=== PATIENT | female | born 1945 | race Caucasian/White ===

== ENCOUNTER → 2023-08-31 10:46 | Outpatient (REF) | payer MEDICARE, OTHER, SELFPAY ==
[2023-08-31 12:05] LABS: % Basophils 0.9 % (0-2); % Eosinophils 1.3 % (0-6); % Immature Granulocytes 0.3 % (0-0.5); % Lymphocytes 29.7 % (20.5-51.1); % Monocytes 7.3 % (1.7-9.3); % Neutrophils 60.5 % (42.2-75.2); Absolute Basophils 0.1 10^3/uL (0-0.2); Absolute Eosinophils 0.1 10^3/uL (0-0.7); Absolute Monocytes 0.5 10^3/uL (0.1-0.6); Absolute Neutrophils 4.1 10^3/uL (1.4-6.5); Hematocrit 43.2 % (37.0-47.0); Hemoglobin 14.8 g/dL (12.0-16.0); Mean Corp Hgb Conc. 34.3 g/dL (33.0-37.0); Mean Corpuscular Hgb 30.5 pg (27.0-31.0); Mean Corpuscular Volume 89.1 fL (81.0-99.0); Mean Platelet Volume 10.6 fL (7.4-10.4); Nucleated Red Blood Cells % 0 %; Platelet Count 271 10^3/uL (130-400); Red Blood Cell Count 4.85 10^6/uL (4.20-5.40); Red Cell Dist. Width 13.2 % (11.5-14.5); White Blood Cell Count 6.7 10^3/uL (4.8-10.8)
[2023-08-31 12:23] LABS: ALT (SGPT) 57 U/L (0-35); AST (SGOT) 48 U/L (14-36); Albumin 4.5 g/dl (3.5-5.0); Alkaline Phosphatase 64 U/L (38-126); Blood Urea Nitrogen 14 mg/dl (7-17); Calcium 9.9 mg/dl (8.4-10.2); Carbon Dioxide 25 mmol/L (22-30); Chloride 108 mmol/L (98-107); Glucose 99 mg/dl (70-99); HDL Cholesterol 72 mg/dl; LDL Cholesterol, Calculated 108 mg/dl; Potassium 4.5 mmol/L (3.5-5.1); Sodium 143 mmol/L (135-145); Total Bilirubin 0.6 mg/dl (0.2-1.3); Total Cholesterol 205 mg/dl (50-199); Total Protein 7.4 g/dl (6.3-8.2); Triglyceride 127 mg/dl (10-149); Very Low Density Lipoprotein 25 mg/dl (0-30); eGFR > 60.00
== END ==
LOC: REG 10:46
PROVIDERS: ATTENDING PHYSICIAN Physician Assistant
DX: I48.0 Paroxysmal atrial fibrillation (principal); Z79.01 Long term (current) use of anticoagulants; E55.9 Vitamin D deficiency, unspecified; K21.9 Gastro-esophageal reflux disease without esophagitis; E78.2 Mixed hyperlipidemia; Z87.898 Personal history of other specified conditions
CPT/HCPCS: 36415; 80053; 80061; 85025

== ENCOUNTER → 2023-10-08 10:40 | Outpatient (REF) | payer MEDICARE, OTHER, SELFPAY ==
[2023-10-08 11:55] LABS: ALT (SGPT) 63 U/L (0-35); AST (SGOT) 52 U/L (14-36); Albumin 4.8 g/dl (3.5-5.0); Alkaline Phosphatase 71 U/L (38-126); Blood Urea Nitrogen 17 mg/dl (7-17); Calcium 10.3 mg/dl (8.4-10.2); Carbon Dioxide 27 mmol/L (22-30); Chloride 104 mmol/L (98-107); Glucose 94 mg/dl (70-99); Potassium 4.7 mmol/L (3.5-5.1); Sodium 141 mmol/L (135-145); Total Bilirubin 0.6 mg/dl (0.2-1.3); Total Protein 7.8 g/dl (6.3-8.2); eGFR > 60.00
== END ==
LOC: REG 10:40
PROVIDERS: ATTENDING PHYSICIAN Physician Assistant
DX: R79.89 Other specified abnormal findings of blood chemistry (principal)
CPT/HCPCS: 36415; 80053

== ENCOUNTER → 2023-10-11 15:02 | Outpatient (REF) | payer MEDICARE, OTHER, SELFPAY | LOC: RCS 15:02 | PROVIDERS: ATTENDING PHYSICIAN Internal Medicine Cardiovascular Disease; FAMILY PHYSICIAN Physician Assistant | DX: I48.0 Paroxysmal atrial fibrillation (principal); I34.0 Nonrheumatic mitral (valve) insufficiency; I77.810 Thoracic aortic ectasia | CPT/HCPCS: 93306 ==

== ENCOUNTER → 2024-01-23 16:56 | Outpatient (REF) | payer MEDICARE, OTHER, SELFPAY ==
[2024-01-23 17:54] LABS: ALT (SGPT) 135 U/L (0-35); AST (SGOT) 108 U/L (14-36); Alkaline Phosphatase 56 U/L (38-126); Total Bilirubin 0.4 mg/dl (0.2-1.3)
== END ==
LOC: REG 16:56
PROVIDERS: ATTENDING PHYSICIAN Physician Assistant; REFERRING PHYSICIAN Internal Medicine Cardiovascular Disease
DX: R79.89 Other specified abnormal findings of blood chemistry (principal); I48.0 Paroxysmal atrial fibrillation; R00.1 Bradycardia, unspecified
CPT/HCPCS: 36415; 82247; 82248; 84075; 84443; 84450; 84460

== ENCOUNTER → 2024-02-08 10:43 | Outpatient (REF) | payer MEDICARE, OTHER, SELFPAY | LOC: RCS 10:43 | PROVIDERS: ATTENDING PHYSICIAN Internal Medicine Cardiovascular Disease; FAMILY PHYSICIAN Physician Assistant | DX: I48.0 Paroxysmal atrial fibrillation (principal); R00.1 Bradycardia, unspecified | CPT/HCPCS: 93225; 93226 ==

== ENCOUNTER → 2024-02-19 10:21 | Outpatient (REF) | payer MEDICARE, OTHER, SELFPAY ==
[2024-02-19 16:20] LABS: ALT (SGPT) 116 U/L (0-35); AST (SGOT) 87 U/L (14-36); Alkaline Phosphatase 62 U/L (38-126); Direct Bilirubin 0.2 mg/dl (0.0-0.4); Total Bilirubin 0.6 mg/dl (0.2-1.3); Total Protein 8.2 g/dl (6.3-8.2)
[2024-02-20 20:26] LABS: Hepatitis B Surface Antigen Negative (Negative)
[2024-02-20 20:37] LABS: Hepatitis B Core Ab, IgM Negative (Negative)
[2024-02-20 20:44] LABS: Hepatitis C Antibody Negative (Negative)
[2024-02-21 13:07] LABS: Hepatitis A IgM Antibody Negative (Negative)
== END ==
LOC: HWWDC 10:21
PROVIDERS: ATTENDING PHYSICIAN Internal Medicine; FAMILY PHYSICIAN Physician Assistant
DX: N95.9 Unspecified menopausal and perimenopausal disorder (principal); R74.01 Elevation of levels of liver transaminase levels; Z12.31 Encounter for screening mammogram for malignant neoplasm of breast
CPT/HCPCS: 36415; 76700; 77063; 77067; 77080; 80076; 86705; 86709; 86803; 87340

== ENCOUNTER → 2024-03-10 10:13 | Outpatient (REF) | payer MEDICARE, OTHER, SELFPAY | LOC: WDC 10:13 | PROVIDERS: ATTENDING PHYSICIAN Physician Assistant | DX: R92.8 Other abnormal and inconclusive findings on diagnostic imaging of breast (principal) | CPT/HCPCS: 76642 ==

== ENCOUNTER → 2024-04-03 16:07 | Outpatient (REF) | payer MEDICARE, OTHER, SELFPAY ==
[2024-04-03 16:40] LABS: Calcium 9.9 mg/dl (8.4-10.2)
[2024-04-03 16:58] LABS: Vitamin D, 25-OH*** 59.4 ng/mL (30-80)
[2024-04-04 10:18] LABS: Intact PTH 44.2 pg/ml (13.6-85.8)
== END ==
LOC: REG 16:07
PROVIDERS: ATTENDING PHYSICIAN Physician Assistant
DX: R79.89 Other specified abnormal findings of blood chemistry (principal); K76.0 Fatty (change of) liver, not elsewhere classified; E83.52 Hypercalcemia
CPT/HCPCS: 36415; 82306; 83970

== ENCOUNTER → 2025-01-14 17:36 | Outpatient (REF) | payer MEDICARE, OTHER, SELFPAY | LOC: WDC 17:36 | PROVIDERS: ATTENDING PHYSICIAN Physician Assistant | DX: R92.8 Other abnormal and inconclusive findings on diagnostic imaging of breast (principal) | CPT/HCPCS: 77062; 77066 ==

== ENCOUNTER → 2025-02-06 11:30 | Outpatient (REF) | payer MEDICARE, OTHER, SELFPAY ==
[2025-02-06 12:32] LABS: Blood Urea Nitrogen 9 mg/dl (7-17); Calcium 9.6 mg/dl (8.4-10.2); Carbon Dioxide 29 mmol/L (22-30); Chloride 104 mmol/L (98-107); Glucose 101 mg/dl (70-99); Potassium 4.6 mmol/L (3.5-5.1); Sodium 139 mmol/L (135-145); eGFR > 60.00
== END ==
LOC: REG 11:30
PROVIDERS: ATTENDING PHYSICIAN Urology; FAMILY PHYSICIAN Physician Assistant
DX: N39.0 Urinary tract infection, site not specified (principal); R39.89 Other symptoms and signs involving the genitourinary system; R31.29 Other microscopic hematuria
CPT/HCPCS: 36415; 80048

== ENCOUNTER → 2025-02-15 14:54 | Outpatient (REF) | payer MEDICARE, OTHER, SELFPAY | LOC: RAD 14:54 | PROVIDERS: ATTENDING PHYSICIAN Urology; FAMILY PHYSICIAN Physician Assistant | DX: N39.0 Urinary tract infection, site not specified (principal); R39.89 Other symptoms and signs involving the genitourinary system; R31.29 Other microscopic hematuria | CPT/HCPCS: 74178; Q9967 ==